=== PATIENT | female | born 1990 | race Caucasian/White ===

== ENCOUNTER → 2019-10-15 | Outpatient (CLI) | payer BC ==
--- NOTE | 2019-10-15 08:31 | Diagnostic Imaging Report ---
PROCEDURE: US Thyroid. TECHNIQUE: Multiple real-time grayscale images were obtained of the thyroid in various projections. INDICATION: Thyromegaly. The right thyroid lobe measured 5.3 x 1.9 x 1.4 cm and contains a midpole tiny 5 mm benign cyst laterally. Right lobe otherwise unremarkable. The left lobe measured 5.2 x 2.1 x 1.4 cm and contains a dominant slightly hypoechoic solid nodule measuring 2.3 x 1.4 x 1.1 cm it is vascularized. The lesion showed no identifiable calcifications. There is a midline isthmic hypoechoic transversely oriented nodule solid and vascularized measuring 1.6 x 0.7 x 1.8 cm. IMPRESSION: Isthmic and left lobe solid masses are classified as TI-RADS 4 level lesions and given its size the left lobe lesion should be considered for percutaneous fine-needle aspiration biopsy. Pending results of that study the isthmic mass should be either sampled or followed in one years time. Dictated by: Dictated on workstation # [id number]
== END ==
LOC: RAD 07:36
PROVIDERS: ATTEND Family Medicine
DX: E01.0 Iodine-deficiency related diffuse (endemic) goiter (principal)
CPT/HCPCS: 76536

== ENCOUNTER → 2020-01-10 | Outpatient (CLI) | payer BC ==
[~2020-01-10] VITALS: Ht 172.7 cm; Wt 90.9 kg
[~2020-01-10] MED LIST: LIDOCAINE 1% INJ 20 ML 20 ML VIAL INJ ONE
--- NOTE | 2020-01-10 11:31 | Diagnostic Imaging Report ---
INDICATION: Left lobe thyroid nodule. The patient presents for ultrasound-guided fine-needle aspiration and biopsy. FINDINGS: The patient is brought to the procedure room and placed on the table in supine position. Ultrasound imaging of the left neck was performed to evaluate appropriate entry site. The left neck was then prepped and draped in the usual sterile fashion. A small amount of 1% lidocaine was utilized for local anesthesia. A total of 4 passes were made into the solid left lobe thyroid nodule utilizing 25-gauge needles and fine-needle aspiration technique. After this, a single pass was made into the nodule with a Rotex needle and Rotex biopsy was performed. Hemostasis was obtained using manual compression. Patient tolerated the procedure well and left the department in stable condition. IMPRESSION: Successful ultrasound-guided fine-needle aspiration and Rotex biopsy of left lobe thyroid nodule. Pathology results are currently pending. Dictated by: Dictated on workstation # [id number]
== END ==
LOC: RAD 10:05
PROVIDERS: ATTEND Otolaryngology
DX: E04.1 Nontoxic single thyroid nodule (principal)
CPT/HCPCS: 88173

== ENCOUNTER → 2020-01-30 | Outpatient (CLI) | payer BC | LOC: LABNPT 07:11 | PROVIDERS: ATTEND Family Medicine | DX: J02.9 Acute pharyngitis, unspecified (principal); Z20.828 Contact with and (suspected) exposure to other viral communicable diseases | CPT/HCPCS: 87635 ==

== ENCOUNTER → 2020-06-23 | Outpatient (CLI) | payer BC ==
[~2020-06-23] VITALS: Ht 172.7 cm; Wt 101.4 kg
--- NOTE | 2020-06-23 16:31 | Diagnostic Imaging Report ---
INDICATION: Thyroid nodule. Patient presents for fine needle aspiration. FINDINGS: The patient was brought to the procedure room and placed on the table in the prone position. Ultrasound imaging over the neck was performed to evaluate for an appropriate entry site. The midline neck was prepped and draped in the usual sterile fashion. A small amount of 1% lidocaine was utilized for local anesthesia. A total of four passes was made into the solid nodule within the isthmus of the thyroid utilizing 25-gauge needles and fine-needle aspiration technique. A single pass was made with a Rotex needle and a Rotex biopsy was performed. The patient tolerated the procedure well and left the Department in stable condition. IMPRESSION: Successful ultrasound guided fine-needle aspiration and Rotex biopsy of the isthmus solid nodule. Pathology results are currently pending. Dictated by: Dictated on workstation # [id number]
== END ==
LOC: RAD 12:45
PROVIDERS: ATTEND Internal Medicine Endocrinology, Diabetes & Metabolism
DX: E04.2 Nontoxic multinodular goiter (principal)

== ENCOUNTER → 2021-06-24 | Outpatient (CLI) | payer BC ==
--- NOTE | 2021-06-24 16:51 | Diagnostic Imaging Report ---
PROCEDURE: US Thyroid. TECHNIQUE: Multiple real-time grayscale images were obtained of the thyroid in various projections. INDICATION: Thyroid mass. Compared with ultrasound 10/15/2019. Left paramedian isthmic mass is hypoechoic, horizontally oriented wider than tall and well defined measuring 2.2 x 1.5 x 0.7 cm unchanged from prior. This is a TI-RADS 4 lesion and given its size should be biopsied however do have images from the previous subtle assisted fine-needle aspiration biopsy of that mass, I do not have the results of that study. Right thyroid lobe today measures 5.2 x 2.0 x 1.5 cm and appears nonfocal at this exam, previous right lobe nodules no longer found. The left thyroid lobe is 5.7 x 1.6 x 1.4 cm and contains a hypoechoic solid mass at its lower pole measuring 3.0 x 1.5 x 1.3 cm increased from prior when it measured 2.3 x 1.4 x 1.1 cm. A 2nd left lobe nodule measuring 1.3 cm at its mid pole is hyperechoic and stable. IMPRESSION: TI-RADS 4 left paramedian isthmic nodule has previously been biopsied. TI-RADS 4 hypoechoic solid lesion in the lower pole of the left lobe is increased in size now 3 cm maximal. While its likely of the same etiology of the previously sampled isthmic mass given its size and increased size as well as hypoechogenicity consideration for biopsy of an mass should be considered. Dictated by: Dictated on workstation # [id number]
== END ==
LOC: RAD 15:05
PROVIDERS: ATTEND Internal Medicine Endocrinology, Diabetes & Metabolism
DX: E04.2 Nontoxic multinodular goiter (principal)
CPT/HCPCS: 76536

== ENCOUNTER → 2023-06-20 | Outpatient (CLI) | payer BC ==
--- NOTE | 2023-06-20 15:33 | Diagnostic Imaging Report ---
INDICATION: survey. TECHNIQUE: Multiple real-time grayscale images were obtained over the gravid uterus. COMPARISON: None. FINDINGS: There is a single live fetus in a transverse presentation with head to maternal left. heart rate was recorded at 143 BPM. Placenta is anterior. No previa is identified. The amniotic fluid index is 15.8 cm. Cervical length is 4.7 cm. kidneys, bladder and stomach are unremarkable. brain is unremarkable. There is a four-chamber heart. There is a three-vessel cord with normal insertion. spine is unremarkable. Biometrical measurements are as follows: Biparietal 4.71 cm, age 20 weeks 2 days. Head circumference 17.56 cm, age 20 weeks 1 days. Abdominal circumference 16.16 cm, age 21 weeks 2 days. Femur length 3.29 cm, age 20 weeks 2 days. Sonographic estimate age: 20 weeks 4 days. Sonographic estimated date of delivery: 11/03/2023. Estimated Weight: 372 gm (+/- 55 gm). LMP percentile: 62%. heart rate: 143 beats per minute. number: 1 of 1. IMPRESSION: Single live IUP of 20 weeks 4 days gestational age. Estimated date of confinement sonographically is 11/03/2023. Dictated by: Dictated on workstation # [id number]
== END ==
LOC: RAD 09:00
PROVIDERS: ATTEND Nurse Practitioner Women's Health
DX: Z34.02 Encounter for supervision of normal first pregnancy, second trimester (principal); Z3A.20 20 weeks gestation of pregnancy
CPT/HCPCS: 76805